=== PATIENT | male | born 1940 | race Caucasian/White ===

== ENCOUNTER 2021-04-25 13:01 | Emergency (ER) | payer MEDICARE, BC | END 2021-04-25 15:40 | disposition home or self-care (01) | LOC: ER1 13:01 | DX: M25.551 Pain in right hip (principal); E78.5 Hyperlipidemia, unspecified; I10 Essential (primary) hypertension; E07.9 Disorder of thyroid, unspecified; Z95.1 Presence of aortocoronary bypass graft; Z95.0 Presence of cardiac pacemaker | CPT/HCPCS: 73502; 99283 ==

== ENCOUNTER 2021-05-01 17:47 | Inpatient (IN) | payer MEDICARE, MEDICAID ==
[~2021-05-01] VITALS: Ht 175.3 cm; Wt 81.6 kg
[2021-05-01 18:40] LABS: HEMOGLOBIN 15.4 gm/dl (14.0-17.5); RED BLOOD COUNT 5.14 M/UL (4.20-5.50); WHITE BLOOD COUNT 5.6 K/UL (4.5-11.0)
[2021-05-01 19:09] LABS: BUN/CREATININE RATIO 19 (0-10)
[2021-05-03 04:46] LABS: HEMOGLOBIN 16.2 gm/dl (14.0-17.5); RED BLOOD COUNT 5.48 M/UL (4.20-5.50); WHITE BLOOD COUNT 6.8 K/UL (4.5-11.0)
[2021-05-03 05:19] LABS: BUN/CREATININE RATIO 24 (0-10)
[2021-05-03] MEDS ORDERED: CELEXA10 MG PO (09:33)
[2021-05-03] MEDS ORDERED: LOPRESSOR50 MG PO (09:33)
[2021-05-03] MEDS ORDERED: CRESTOR10 MG PO (09:33)
[2021-05-03] MEDS ORDERED: SYNTHROID50 MCG PO (09:33)
[2021-05-03] MEDS ORDERED: ASPIRIN EC81 MG PO (10:46)
[2021-05-04 05:03] LABS: HEMOGLOBIN 14.5 gm/dl (14.0-17.5); RED BLOOD COUNT 4.96 M/UL (4.20-5.50); WHITE BLOOD COUNT 6.8 K/UL (4.5-11.0)
[2021-05-04 05:41] LABS: BUN/CREATININE RATIO 24 (0-10)
[2021-05-06 05:00] LABS: BUN/CREATININE RATIO 28 (0-10)
[2021-05-08 05:04] LABS: BUN/CREATININE RATIO 22 (0-10)
[2021-05-11 07:13] LABS: HEMOGLOBIN 13.5 gm/dl (14.0-17.5); RED BLOOD COUNT 4.71 M/UL (4.20-5.50); WHITE BLOOD COUNT 9.1 K/UL (4.5-11.0)
[2021-05-11 07:39] LABS: BUN/CREATININE RATIO 32 (0-10)
[2021-05-12 06:59] LABS: HEMOGLOBIN 15.7 gm/dl (14.0-17.5); RED BLOOD COUNT 5.38 M/UL (4.20-5.50); WHITE BLOOD COUNT 13.8 K/UL (4.5-11.0)
[2021-05-12 07:16] LABS: BUN/CREATININE RATIO 30 (0-10)
[2021-05-12] MEDS ORDERED: PROAIR HFA8.5 GM INH (08:45)
[2021-05-12] MEDS ORDERED: CEFUROXIME500 MG PO (08:45)
[2021-05-12] MEDS ORDERED: DECADRON6 MG PO (08:45)
== END 2021-05-12 14:42 | disposition home or self-care (01) | DRG 177 ==
LOC: ER1 17:47 → CDU 05-03 04:02 → MED SURG 4 05-03 04:02 → CDU 05-04 09:00 → MED SURG 4 05-04 09:00
PROVIDERS: Emergency Medicine; Family Medicine; Internal Medicine; ADMIT Internal Medicine
PROC: 8E0ZXY6 Isolation (ICD-10-PCS; 2021-05-03)
PROC: XW033E5 Introduction of Remdesivir Anti-infective into Peripheral Vein, Percutaneous Approach, New Technology Group 5 (ICD-10-PCS; principal; 2021-05-07)
PROC: 3E0333Z Introduction of Anti-inflammatory into Peripheral Vein, Percutaneous Approach (ICD-10-PCS; 2021-05-07)
DX: U07.1 COVID-19 (principal); J15.9 Unspecified bacterial pneumonia; G93.41 Metabolic encephalopathy; J96.01 Acute respiratory failure with hypoxia; J12.82 Pneumonia due to coronavirus disease 2019; I48.20 Chronic atrial fibrillation, unspecified; E87.1 Hypo-osmolality and hyponatremia; I10 Essential (primary) hypertension; E86.0 Dehydration; R07.9 Chest pain, unspecified; E78.5 Hyperlipidemia, unspecified; I25.10 Atherosclerotic heart disease of native coronary artery without angina pectoris; F01.50 Vascular dementia, unspecified severity, without behavioral disturbance, psychotic disturbance, mood disturbance, and anxiety; E03.9 Hypothyroidism, unspecified; Z95.0 Presence of cardiac pacemaker; Z79.899 Other long term (current) drug therapy; Z90.89 Acquired absence of other organs; Z88.8 Allergy status to other drugs, medicaments and biological substances; Z82.49 Family history of ischemic heart disease and other diseases of the circulatory system; Z87.891 Personal history of nicotine dependence; Z79.82 Long term (current) use of aspirin; Z79.01 Long term (current) use of anticoagulants; Z95.1 Presence of aortocoronary bypass graft
CPT/HCPCS: ECHO; 36415; 36600; 51702; 70450; 70496; 70498; 71045; 71275; 80048; 80053; 80307; 81001; 82140; 82436; 82550; 82553; 82607; 82746; 82803; 82962; 83605; 83690; 83735; 83874; 83880; 84133; 84300; 84439; 84443; 84484; 85025; 86140; 87040; 93005; 93306; 93880; 94760; 97161; 97166; 99285; G0480; J0456; J0696; J1100; J1650; J3486; J7030; J7050; Q9967; U0002